=== PATIENT | male | born 1995 | race Caucasian/White ===

== ENCOUNTER 2018-05-02 22:27 | Emergency (ER) | payer OTHER ==
[~2018-05-02] VITALS: Ht 170.2 cm; Wt 65.8 kg
[2018-05-02 22:28] VITALS: Ht 170.2 cm; Wt 65.8 kg
[2018-05-03 01:17] VITALS: BP 140/90
== END 2018-05-03 01:17 | disposition home or self-care (01) ==
LOC: ED 22:27
DX: S86.012A Strain of left Achilles tendon, initial encounter (principal); X58.XXXA Exposure to other specified factors, initial encounter; Y93.66 Activity, soccer; Y92.89 Other specified places as the place of occurrence of the external cause; Y99.8 Other external cause status